=== PATIENT | male | born 1995 | race African-American/Black ===

== ENCOUNTER 2019-04-05 13:15 | Outpatient (CLI) | payer OTHER ==
[2019-04-05 14:16] VITALS: BP 95/60
--- NOTE | 2019-04-05 14:16 | CONSULTATION NOTE ---
Information from patient questionnaire entered by Cielo Felder. I have reviewed and concur with the information entered by Cielo Felder. This document represents the service I personally performed and the decisions made by me, Claudia Vasquez MD, [facility]. - History of Present Illness Chief Complaint: Unrefreshed sleep, Snoring, Excessive daytime sleepiness, Observed pauses in breathing, Fatigue, Frequent awakenings at night The patient tells me that he normally goes to bed around 8:00-10:00 pm, and it takes him approximately 10-20 minutes to fall asleep. He has been told that he snores loudly and irregularly at night. He has been observed to stop breathing in his sleep. He sleeps alone. He can recall waking up on the average of 3 times during the night. Most of the time he wakes up because of having to use the restroom. He has occasionally awakened for his own snoring, choking, and having to gasp for air. There is a lot of tossing and turning in his sleep. Generally he can recall having dreams. There is no somniloquy (sleep talking) or somnambulism (sleep walking). He usually wakes up at 11:00am and does not feel refreshed. He usually does not have a morning headache. During the day he complains of feeling sleepy and fatigued. He has fallen asleep while driving and has gone out of the [place]. He usually naps for during the day. If he naps, upon falling asleep during the day he reports to having vivid dreams. He has never experienced sleep paralysis, cataplexy, or symptoms of restless leg syndrome. He reports having impaired concentration during the day. [place] Sleepiness Scale Score: 13 - Allergies/Home Medications Allergies and home medications reviewed: Yes - Social History The patient's occupation is a [employer]. Patient is Single and lives in . Smoked in the past 12 months: No Alcohol use: No Caffeine use: No - Review of Systems Weight gain over past 5 years: 15 Cardiovascular: reports: palpitations, chest pain, irregular heart rate or pulse Respiratory: reports: shortness of breath Gastrointestinal: denies: heartburn, difficulty swallowing, nausea, vomitting, diarrhea, abdominal pain, other: Urinary: reports: frequency Neurological: denies: headaches, seizure, head trauma, disorientation, speech dysfunction, gait or balance problems, fainting or unconsciousness, other: Psychiatric: denies: Attention Deficit Hyperactivity, anxiety, depression, mood disorder, claustrophobia, other: Ear/Nose/Throat: reports: nasal congestion, dry mouth/throat, wisdom teeth removed Endocrine: denies: thyroid disease, history of goiter, sluggishness, too hot or cold, excessive thirst, increased appetite, increased urination, unexplained weakness, other: Musculoskeletal: reports: back pain Immunologic: reports: sneezing - Physical Examination Vital signs obtained and documented by: Dr. Vasquez Blood Pressure: 95/60 Cuff size: regular Heart Rate: 88 O2 Saturation: 98 Height: 5 ft 6 in Weight (kg): 84.368 kg Body Mass Index: 29.9 BMI Classification: Overweight Neck circumference: 16 Mood/affect: normal HEENT: No craniofacial malformation Nostrils: patent to airflow Turbinates: normal Septum: midline Mouth and throat: narrow oropharynx Soft palate: long Hard palate: normal Uvula: normal Tongue: enlarged in size with teeth siddiqui on lateral edges Tonsils: small Chin and jaw: normal size and position Neck: normal w/o lymphadenopathy or thyromegaly Heart: regular rate and rhythm Lungs: clear bilaterally Abdomen: soft, non-tender Extremities: no edema or clubbing Neurologic: intact, no focal deficits - Impression 1. Suspected Obstructive Sleep Apnea-Hypopnea Syndrome, as suggested by a history of loud and irregular snoring, observed cessation of breath while asleep, gasping or choking in sleep, frequent awakening during the night, unrefreshed sleep, cognitive impairment, and excessive daytime sleepiness. Narrow oropharynx and obesity are common predisposing factors for obstructive sleep apnea-hypopnea syndrome. I recommend proceeding to polysomnography to confirm the diagnosis and to assess severity. If the patient has significant sleep disordered breathing, a manual CPAP titration study will also be performed to find the optimal treatment pressure. I informed the patient of what the sleep studies involve and after some discussion, obtained agreement to proceed. The pathophysiology of obstructive sleep apnea-hypopnea syndrome was discussed with the patient and health risks of cardiovascular and cerebrovascular disease if not treated. Risks of drowsy driving discussed in detail and patient advised to avoid long distance driving and to parts puller at the first sign of drowsiness. Patient agreed to plan. - Plan Schedule polysomnography and return in 1-2 weeks after the study to discuss result and initiate therapy. Avoid long distance driving or driving when feeling sleepy. Avoid alcohol, sedative and muscle relaxant around bedtime. Review instructions provided by trained office staff on how to prepare for the sleep study. Return for follow-up after sleep study completed. I spent 100% of this 15 minute visit face to face with the patient with greater than 50% of this was spent time counseling the patient and coordination of care.
== END 2019-04-05 13:16 | disposition home or self-care (01) ==
LOC: SC 13:15
PROVIDERS: ATTEND Internal Medicine Pulmonary Disease
DX: R06.83 Snoring (principal); R06.81 Apnea, not elsewhere classified; G47.8 Other sleep disorders; R41.89 Other symptoms and signs involving cognitive functions and awareness; G47.10 Hypersomnia, unspecified; E66.3 Overweight; Z68.29 Body mass index [BMI] 29.0-29.9, adult
CPT/HCPCS: 99203; 99212

== ENCOUNTER 2019-04-21 20:24 | Outpatient (CLI) | payer OTHER | END 2019-04-21 20:25 | disposition home or self-care (01) | LOC: SC 20:24 | PROVIDERS: ATTEND Internal Medicine Pulmonary Disease | DX: G47.61 Periodic limb movement disorder (principal) | CPT/HCPCS: 95810 ==

== ENCOUNTER 2019-05-19 13:48 | Outpatient (CLI) | payer OTHER ==
[2019-05-19 14:53] VITALS: BP 100/60
--- NOTE | 2019-05-19 14:53 | SLEEP CARE CONSULTATION ---
Information from patient questionnaire entered by Terri Chew. I have reviewed and concur with the information entered by Terri Chew. This document represents the service I personally performed and the decisions made by me, Amie Rockwell RN, MSN, [employer]. History of Present Illness Initial [place] Sleepiness Scale score: 13 Current [place] Sleepiness Scale score: 18 Additional HPI information: SHERRY WOMACK returns for follow up of the recently performed polysomnography and informed of findings. I explained the pathophysiology behind obstructive sleep apnea. Patient does not have sleep apnea and was advised how weight gain could increase the risk of developing sleep apnea in the future. Patient has moderate to loud snoring and periodic limb movements. Snoring can be reduced by weight loss. Snoring can also be treated with an oral appliance f rom a dentist. In addition, an ENT evaluation can be do to see if other treatment is indicated. Patient counseled not drink alcohol less than 4 hours before bedtime as it can increase snoring and apnea. Patient was cautioned about risks of drowsy driving until sleepiness symptoms resolve. [facility] patient education on snoring and sleep apnea given and reviewed. Sleep Study - Polysomnography Polysomnography findings: The quality of the study is good. The patient had reduced sleep efficiency due to clinical phlebotomist awakening. The sleep architecture was normal. Respiratory monitoring showed no significant sleep disordered breathing (AHI = 0.2) or hypoxia (real oxygen saturation of 89%). The patient slept mostly supine (supine AHI = 0.0; non-supine = 0.62). Snore was moderate to loud in intensity. There was mild periodic leg movement of sleep not associated with sleep fragmentation. Cardiac rhythm was normal sinus rhythm without significant arrhythmia. No abnormal behavior (parasomnia) observed during the night. Allergies and Home Medications Known drug allergies: No Home medication list reviewed: Yes (none) Review of Systems Review of systems same as previous: Yes Physical Exam Blood Pressure: 100/60 Heart Rate: 66 O2 Saturation: 99 Height: 5 ft 6 in Weight (kg): 185 lb Body Mass Index: 29.8 BMI Classification: Overweight Impression and Plan 1. Snoring( moderate to loud) but no significant sleep disordered breathing. Patient advised that often weight loss will reduce snoring as well as apnea risk. He was surprised that his current weight shows him being overweight with a BMI of 29. I advised him to discuss with his PCP and discussed BMI chart perimeters. I discussed how increased waist size is important in determining increased health risks but neck thickness can increase apnea risk. An oral appliance can also be used for snoring. This would require a dental consultation and insurance checked to see if covered. Patient cautioned not to use other online appliances as can cause bite issues. He is not interested at this time. An ENT consult can also be helpful to determine if any other treatment is an opt ion. Since he awakens to his snoring and has nasal congestion with difficulty breathing through his nose and feels one side collapses , an ENT consutation is recommended. Snoring can disrupt sleep and contribute to sleepiness symptoms. 2. Periodic limb movement, mild , that did not fragment patients sleep. Periodic limb movement of sleep (PLMS) is characterized by episodes of repetitive limb movements that occur during sleep and usually involve the lower limbs. The etiology is unknown but can be associated with restless leg syndrome (RLS), neuropathy, spinal cord diseases, kidney disease, rheumatological disorders, narcolepsy, obstructive sleep apnea, and REM sleep behavior disorder. Other factors that can increase PLMS and/or RLS are heredity and iron deficiency as reflected by a low serum ferritin level below 50 to 75mcg / L. Several medications can precipitate or aggravate PLMS such as selective serotonin re- uptake inhibitor antidepressants, tricyclic antidepressants, lithium, and dopamine receptor antagonists with the exception of bupropion. Caffeine can also aggravate PLMS and should be avoided. Sleep hygiene methods can also improve sleep as well as lifestyle changes such as regular exercise. Patient was advised that no treatment is needed at this time. If symptoms increase, then further evaluation is indicated. 3. Fatigue and excessive daytime sleepiness with [place] sleepiness scale of 18. Since he continues to have fatigue / sleepiness symptoms with about 7-8 hours of sleep a night, he is advised to follow up with PCP for further evaluation. He has had some drowsy driving so [facility] pamphlet given and reviewed. He was advised not to drive if fatigued as it is the highest risk for accidents. * Attempt to lose weight * Avoid alcohol consumption near bedtime * The patient is cautioned about driving until sleepiness is completely resolved. * Follow up with PCP for further evaluation of fatigue / sleepiness and referral to ENT for difficulty breathing through his nose. * Return as needed. I spent 100% of this 30 minute visit face to face with the patient with greater than 50% of this was spent time counseling the patient and coordination of care.
== END 2019-05-19 13:49 | disposition home or self-care (01) ==
LOC: SC 13:48
PROVIDERS: ATTEND Nurse Practitioner Family
DX: R06.83 Snoring (principal); G47.61 Periodic limb movement disorder; R53.83 Other fatigue; G47.10 Hypersomnia, unspecified
CPT/HCPCS: 99212; 99214

== ENCOUNTER 2020-06-22 16:36 | Emergency (ER) | payer OTHER ==
[2020-06-22 16:46] VITALS: BP 147/78
--- NOTE | 2020-06-22 16:58 | ED Physician Documentation ---
PD HPI MHE - Stated complaint Stated Complaint: DEPRESSION/ANXIETY - Chief complaint Chief Complaint: MHE - History obtained from History obtained from: Patient - Additional information Additional information: Active duty in the [employer] was referred here by [facility] psychiatrist or psychologist for starting antidepressants as he states that the base psychiatrist or psychologist is unable to prescribe antidepressants. Is unclear what caused the visit today. He denies suicidal or homicidal ideation. He has an appoint with his primary manager medicare on Thursday. Review of Systems GI: denies: Abdominal Pain, Nausea, Diarrhea Neurologic: reports: Reviewed and negative Psychiatric: reports: Depressed, Anxiety. denies: Suicidal, Homicidal, Hallucinations, Delusions PD PAST MEDICAL HISTORY - Past Medical History Past Medical History: Yes Psych: Depression - Past Surgical History Past Surgical History: No - Present Medications Home Medications: Ambulatory Orders Medication Instructions Recorded Confirmed FLUoxetine [PROzac] 10 mg PO DAILY #30 capsule 06/22/20 - Allergies Allergies/Adverse Reactions: Allergies Allergy/AdvReac Type Severity Reaction Status Date / Time No Known Drug Allergies Allergy Verified 06/22/20 16:45 - Social History Does the pt smoke?: No Smoking Status: Never smoker Does the pt drink ETOH?: Yes ETOH Use: Beer Does the pt have substance abuse?: No - Immunizations Immunizations are current?: Yes PD ED PE NORMAL - Vitals Vital signs reviewed: Yes - General General: Alert and oriented X 3, No acute distress - Cardiac Cardiac: RRR, No murmur - Respiratory Respiratory: No respiratory distress, Clear bilaterally - Abdomen Abdomen: Non tender - Neuro Neuro: Alert and oriented X 3, Normal speech - Psych Psych: Normal mood, Normal affect Results - Vitals Vitals: Vital Signs - 24 hr 06/22/20 16:42 Temperature 36.7 C Heart Rate 84 Respiratory 16 Rate Blood Pressure 147/78 H O2 Saturation 100 Oxygen O2 Source Room air PD MEDICAL DECISION MAKING - ED course ED course: 24-year-old gentleman with unipolar depression and anxiety presents [place] for same. No indication for hospitalization. Will start some fluoxetine pending follow-up. He will return if worse. Departure - Departure Disposition: 01 Home, Self Care Clinical Impression: Depression Qualifiers: Depression Type: major depressive disorder Major depression recurrence: recurrent Active/Remission status: currently active Major depression episode severity: moderate Qualified Code(s): F33.1 - Major depressive disorder, recurrent, moderate Condition: Good Record reviewed to determine appropriate education?: Yes Instructions: ED Depression Prescriptions: FLUoxetine [PROzac] 10 mg PO DAILY #30 capsule Comments: [place], take the prescription I gave you with you to that appointment. Return if worsening.
== END 2020-06-22 16:59 | disposition home or self-care (01) ==
LOC: ED 16:36
DX: F33.1 Major depressive disorder, recurrent, moderate (principal)
CPT/HCPCS: 99282; 99283